=== PATIENT | male | born 1960 | race African-American/Black ===

== ENCOUNTER → 2021-03-22 | Outpatient (CLI) | payer OTHER ==
[~2021-03-22] MED LIST: ASACOL400 MG; AZITHROMYCIN 2250 MG PO; BACTRIM DS TAB1 EACH PO; CALCIUM AND MA1 EACH PO; CITRUCEL CLEAR539 G1 PO; FISH OIL 1,001000 MG PO; GARLIC OIL1 EAC1 PO; GLUCOSAMINE &1 EACH PO; LEVAQUIN 250 M250 MG PO; LISINOPRIL20 MG; NORCO 5-325 TA1 EACH PO; NORVASC10 MG PO; PENTASA 250 MG PO; PERCOCET 5-3251 EACH PO; PREDNISONE PO; VITAMIN D1000 UNI1 PO
== END ==
LOC: M.RAD 07:18
PROVIDERS: ATTEND Chiropractor
DX: M17.0 Bilateral primary osteoarthritis of knee (principal); M19.071 Primary osteoarthritis, right ankle and foot; M19.072 Primary osteoarthritis, left ankle and foot; M19.021 Primary osteoarthritis, right elbow; M19.022 Primary osteoarthritis, left elbow